=== PATIENT | female | born 1990 | race Two or more races ===

== ENCOUNTER 2022-09-05 13:47 | Emergency (ER) | payer OTHER ==
[~2022-09-05] VITALS: Ht 172.7 cm; Wt 68.0 kg
[2022-09-05] MEDS ORDERED: ZYRTEC10 M3 PO (15:29)
[2022-09-05] MEDS ORDERED: BENADRYL25 MG PO (15:29)
[2022-09-05] MEDS ORDERED: MEDROLPACK PO (15:29)
== END 2022-09-05 15:31 | disposition home or self-care (01) ==
LOC: ER 13:47
DX: T78.40XA Allergy, unspecified, initial encounter (principal)